=== PATIENT | male | born 1935 | race Caucasian/White ===

== ENCOUNTER 2021-03-30 11:03 | Emergency (ER) | payer OTHER ==
[~2021-03-30 11:03] MED LIST: ALENDRONATE SOD35 MG PO; CILOSTAZOL50 MG PO; FLOMAX0.4 MG PO; FLONASE 0.05% N16 GM; GLUCOPHAGE 500500 MG PO; HYDROCHLOROTHIA25 MG PO; IMDUR ER TAB 6060 MG PO; LEVOFLOXACIN500 MG PO; LIPITOR40 MG PO; LOPRESSOR50 MG PO; MOBIC7.5 MG PO; NITROSTAT0.4 MG SL; NORCO 5-325 TA1 EACH PO; RANEXA500 MG PO; WARFARIN SODIUM6 MG PO; ZESTRIL40 MG PO
[2021-03-30 12:44] LABS: HEMOGLOBIN 14.4 gm/dl (14.0-17.5); RED BLOOD COUNT 4.54 M/UL (4.20-5.50); WHITE BLOOD COUNT 5.3 K/UL (4.5-11.0)
== END 2021-03-30 15:50 | disposition home or self-care (01) ==
LOC: ER1 11:03
PROVIDERS: Physician Assistant
DX: M25.571 Pain in right ankle and joints of right foot (principal); M79.661 Pain in right lower leg; E11.9 Type 2 diabetes mellitus without complications; I11.0 Hypertensive heart disease with heart failure; I50.9 Heart failure, unspecified; Z79.01 Long term (current) use of anticoagulants; Z79.899 Other long term (current) drug therapy
CPT/HCPCS: 73610; 80053; 85025; 85610; 93971; 99284

== ENCOUNTER 2021-11-30 23:12 | Emergency (ER) | payer OTHER ==
[2021-11-30 23:41] LABS: HEMOGLOBIN 15.6 gm/dl (14.0-17.5); RED BLOOD COUNT 4.77 M/UL (4.20-5.50); WHITE BLOOD COUNT 4.7 K/UL (4.5-11.0)
[2021-12-01 00:01] LABS: BUN/CREATININE RATIO 15 (0-10)
== END 2021-12-01 09:55 | disposition home or self-care (01) ==
LOC: ER1 23:12
PROVIDERS: Family Medicine
DX: J44.9 Chronic obstructive pulmonary disease, unspecified (principal); R41.82 Altered mental status, unspecified
CPT/HCPCS: 36600; 70450; 71045; 80053; 80307; 81001; 82550; 82553; 82803; 83605; 83735; 84484; 85025; 85610; 87040; 93005; 99285

== ENCOUNTER 2021-12-08 12:12 | Inpatient (IN) | payer OTHER ==
[~2021-12-08] VITALS: Ht 188 cm; Wt 143.8 kg
[~2021-12-08 12:12] MED LIST changes: +HYDROCODON-ACE1 EAC4 PO; -NORCO 5-325 TA1 EACH PO
[2021-12-08 12:47] LABS: HEMOGLOBIN 15.3 gm/dl (14.0-17.5); RED BLOOD COUNT 4.68 M/UL (4.20-5.50); WHITE BLOOD COUNT 4.5 K/UL (4.5-11.0)
[2021-12-08 13:14] LABS: BUN/CREATININE RATIO 22 (0-10)
[2021-12-08] MEDS ORDERED: ELIQUIS5 MG PO (16:41)
[2021-12-08] MEDS ORDERED: DILTIAZEM HCL120 MG PO (16:41)
[2021-12-08] MEDS ORDERED: LORATADINE10 MG PO (16:42)
[2021-12-08] MEDS ORDERED: ASPIRIN EC81 MG PO (16:43)
[2021-12-09 07:52] LABS: HEMOGLOBIN 14.8 gm/dl (14.0-17.5); RED BLOOD COUNT 4.65 M/UL (4.20-5.50)
[2021-12-09 07:54] LABS: WHITE BLOOD COUNT 7.5 K/UL (4.5-11.0)
[2021-12-10 05:59] LABS: HEMOGLOBIN 14.8 gm/dl (14.0-17.5); RED BLOOD COUNT 4.77 M/UL (4.20-5.50); WHITE BLOOD COUNT 8.3 K/UL (4.5-11.0)
[2021-12-11 06:08] LABS: HEMOGLOBIN 14.5 gm/dl (14.0-17.5); RED BLOOD COUNT 4.62 M/UL (4.20-5.50)
== END 2021-12-12 19:45 | disposition expired | DRG 871 ==
LOC: ER1 12:12 → CDU 14:23 → CCU 19:37 → PROG CARE 12-11 11:28
PROVIDERS: Emergency Medicine; Internal Medicine Nephrology; Physician Assistant Medical; ADMIT Internal Medicine
PROC: 8E0ZXY6 Isolation (ICD-10-PCS; principal; 2021-12-08)
PROC: XW033E5 Introduction of Remdesivir Anti-infective into Peripheral Vein, Percutaneous Approach, New Technology Group 5 (ICD-10-PCS; 2021-12-08)
PROC: 3E0333Z Introduction of Anti-inflammatory into Peripheral Vein, Percutaneous Approach (ICD-10-PCS; 2021-12-08)
PROC: 3E033XZ Introduction of Vasopressor into Peripheral Vein, Percutaneous Approach (ICD-10-PCS; 2021-12-08)
PROC: 5A09457 Assistance with Respiratory Ventilation, 24-96 Consecutive Hours, Continuous Positive Airway Pressure (ICD-10-PCS; 2021-12-08)
DX: A41.89 Other specified sepsis (principal); U07.1 COVID-19; J12.82 Pneumonia due to coronavirus disease 2019; Z66 Do not resuscitate; R65.21 Severe sepsis with septic shock; J80 Acute respiratory distress syndrome; Z68.41 Body mass index [BMI] 40.0-44.9, adult; N17.9 Acute kidney failure, unspecified; E87.2 Acidosis; I13.0 Hypertensive heart and chronic kidney disease with heart failure and stage 1 through stage 4 chronic kidney disease, or unspecified chronic kidney disease; E87.3 Alkalosis; F41.9 Anxiety disorder, unspecified; N18.30 Chronic kidney disease, stage 3 unspecified; H91.93 Unspecified hearing loss, bilateral; E66.01 Morbid (severe) obesity due to excess calories; I50.9 Heart failure, unspecified; N28.1 Cyst of kidney, acquired; E11.22 Type 2 diabetes mellitus with diabetic chronic kidney disease; R31.9 Hematuria, unspecified; I25.10 Atherosclerotic heart disease of native coronary artery without angina pectoris; E87.70 Fluid overload, unspecified; I48.91 Unspecified atrial fibrillation; E78.5 Hyperlipidemia, unspecified; N40.0 Benign prostatic hyperplasia without lower urinary tract symptoms; Z79.01 Long term (current) use of anticoagulants; Z95.5 Presence of coronary angioplasty implant and graft; Z98.890 Other specified postprocedural states; Z79.82 Long term (current) use of aspirin
CPT/HCPCS: 0240U; 36415; 36600; 71045; 80048; 80053; 80202; 81001; 82550; 82553; 82570; 82803; 82962; 83036; 83605; 83735; 83874; 83880; 84133; 84156; 84300; 84484; 85025; 85610; 85730; 86140; 87040; 87081; 87086; 89050; 92610; 93005; 93970; 94660; 94664; 94760; 96374; 96375; 99285; C9113; J0248; J0456; J0696; J1100; J1940; J2060; J2185; J2270; J3370; J7030; J7070; P9047; Q0249